=== PATIENT | female | born 1950 | race Caucasian/White ===

== ENCOUNTER 2016-05-23 13:04 | Inpatient (IN) | payer OTHER ==
[2016-05-18 17:29] LABS: HEMATOCRIT 38.2 % (36.0-48.0); HEMOGLOBIN 13.3 g/dL (12.0-16.0)
[2016-05-18 17:57] LABS: BUN (BLOOD UREA NITROGEN) 22 MG/DL (6-23); CHLORIDE, SERUM 98 MMOL/L (96-112); CO2 (CARBON DIOXIDE) 30 MMOL/L (24-34); GFR AFRICAN AMERICAN 61 ML/MIN (>=60); GFR NON AFRICAN AMERICAN 52 ML/MIN (>=60); GLUCOSE, SERUM 119 MG/DL (60-99); POTASSIUM, SERUM 3.6 MMOL/L (3.5-5.3); SODIUM, SERUM 138 MMOL/L (135-148)
--- NOTE | ~2016-05-23 | OP ---
Record Of Operation [facility] [address] [place]. [address] NAME: DALIA YO : 48 STATUS : ADM IN PAT#: [id number] AGE: 65 ADM/REG DATE : 05/23/16 MR#: [id number] REPORT SERV DATE: 05/23/16 DICTATED BY: JAY CABRAL DATE: 05/23/16 REPORT STATUS : Draft TRANSCRIBED BY: MODL DATE: 05/23/16 DATE OF PROCEDURE: 05/23/2016 PREOPERATIVE DIAGNOSIS: C5-C6 disk disease and stenosis. POSTOPERATIVE DIAGNOSIS: C5-C6 disk disease and stenosis. PROCEDURES: 1. Anterior cervical diskectomy and fusion, C5-6. 2. Placement of Medtronic PEEK interbody spacer, C5-C6. 3. Anterior cervical plate from [employer]tronic, C5-C6. 4. Allograft bone matrix. 5. Neuro monitoring. 6. Operative microscope. SURGEON: Jay Cabral DO. ANESTHESIA: General. ESTIMATED BLOOD LOSS: 5 mL. COMPLICATIONS: None. INDICATIONS: The patient is a 65-year-old with neck and arm pain, failed conservative treatment. After discussion of risks and benefits, elected to proceed with surgical intervention. PROCEDURE IN DETAIL: I identified the patient in the holding area. Consent was obtained, went to the operating room, underwent general anesthesia with endotracheal intubation, prepped and draped in the usual sterile fashion. Operative safety pause was performed, then we proceeded with surgery. A transverse incision was made over the C5-C6 level taken down through the platysma, dissection carried out down to the anterior aspect of the spine. Longus colli elevated. [place] pin placed and lateral fluoroscopic image was used to verify operative level. Operative microscope was brought in. The knife was used to perform an annulotomy at the C5-C6 level. After distraction applied, free disk material removed with pituitary. Anterior osteophytes were removed with Kerrison. Posterior osteophytes and uncinate processes taken down with a cameron bur. Foraminotomies performed with a Kerrison. Endplates were prepared with curettes, rasp, and a cutting bur. Trial spacers implanted. Then, a Medtronic PEEK interbody spacer with allograft bone matrix was placed at C5-C6. [place] pins were removed. Anterior cervical plate from [employer]tr[employer] was placed at C5-C6. Screws were placed and final tightened. Locking mechanisms were engaged. Final AP and lateral fluoroscopic images were obtained. Irrigation performed. Hemostasis achieved. Layered closure performed. Sterile dressings applied. The patient awoke and extubated, taken to the recovery room in stable condition. OPERATIVE FINDINGS: C5-6 disk disease and stenosis. No sustained neuromonitoring alerts Record Of Operation [address] [address] NAME: DALIA YO : [birth year] STATUS : ADM IN PAT#: [id number] AGE: 65 ADM/REG DATE : 05/23/16 MR#: [id number] REPORT SERV DATE: 05/23/16 DICTATED BY: JAY CABRAL DATE: 05/23/16 REPORT STATUS : Draft TRANSCRIBED BY: MELANY DATE: 05/23/16 occurred. LIZ/MELANY Jay Cabral DO / [id number] CC: DO Cristin Coombs M.D.
[~2016-05-23 13:04] MED LIST: AMIT50 PO; ATEN25 PO; BIOTIN10 MG PO; CALTRA600D PO; HYDROCHLOROT25 MG PO; LOTE20 PO; LOTENSIN HCT1 TA3 PO; MULTIPLE VIT PO; NORV5 PO; PRAVAC PO; PROBIOTIC PO; PROZAC PO; ULTRAM50 PO; VITAMIN B-121000 MC1 SL
== END 2016-05-23 23:59 | disposition home or self-care (01) | DRG 473 ==
LOC: SDC 13:04 → SDC/OF 13:05
PROVIDERS: Orthopaedic Surgery
PROC: 0RG10J0 Fusion of Cervical Vertebral Joint with Synthetic Substitute, Anterior Approach, Anterior Column, Open Approach (ICD-10-PCS; 2016-05-23)
PROC: 0RG10K0 Fusion of Cervical Vertebral Joint with Nonautologous Tissue Substitute, Anterior Approach, Anterior Column, Open Approach (ICD-10-PCS; 2016-05-23)
PROC: 0RG10A0 Fusion of Cervical Vertebral Joint with Interbody Fusion Device, Anterior Approach, Anterior Column, Open Approach (ICD-10-PCS; principal; 2016-05-23 06:45)
PROC: 0RB30ZZ Excision of Cervical Vertebral Disc, Open Approach (ICD-10-PCS; 2016-05-23 06:45)
DX: M48.02 Spinal stenosis, cervical region (principal); I10 Essential (primary) hypertension; M50.922 Unspecified cervical disc disorder at C5-C6 level; M79.7 Fibromyalgia; F41.9 Anxiety disorder, unspecified
CPT/HCPCS: 80048; 82962; 85014; 85018; 87641; 88304; 88311; 93005; A9270-GY; C1713; J0690; J1170; J2250; J2370; J2405; J2550; J2710; J3010